=== PATIENT | male | born 1945 | race Caucasian/White ===

== ENCOUNTER 2017-06-21 08:53 | Day surgery (SDC) | payer MEDICARE, OTHER ==
[~2017-06-21] VITALS: Ht 172.7 cm; Wt 149.7 kg
[~2017-06-21 08:53] MED LIST: ALEVE220 MG PO; AMOXICILLIN500 MG PO; FISH OIL500 MG PO; HYDROCHLOROTHIA25 MG PO
[2017-06-21] MEDS ORDERED: VITAMIN D400 UNIT PO (09:21)
--- NOTE | 2017-06-21 11:52 | NUR ---
06/21/17 1152 Keerthi Tabor 1142 PT ARRIVED IN PACU SLEEPY WITH NO C/O'S.
--- NOTE | 2017-06-21 12:32 | NUR ---
PT IS BACK TO DS FROM PACU. WATER IS ON THE BEDSIDE TABLE. AT THE BEDSIDE. DC CRITERIA IS DISCUSSED WITH PT AND , BOTH VERBALIZE UNDERSTANDING. PT REPORTS NOT BEING HUNGRY AT THIS TIME. WILL REASSESS WITHIN THE HOUR.
--- NOTE | 2017-06-21 13:20 | NUR ---
PT WAS ABLE TO EAT LUNCH WITHOUT ISSUE. NO PAIN. STILL AT BEDSIDE. PT REQUESTING TO GO HOME.
--- NOTE | 2017-06-21 13:32 | NUR ---
DC INSTRUCTIONS GIVEN TO PATIENT IN THE PRESENCE OF HIS VERBALLY. THE OPPORTUNITY FOR QUESTIONS IS GIVEN. THE PT IS ALLOWED TO GET DRESSED AND HIS GOES OUT TO GET THE CAR.
--- NOTE | 2017-06-21 19:56 | EKG ---
[facility] [address] [facility] [place] [address] Signed Normal sinus rhythm with sinus arrhythmia Normal ECG No previous ECGs available Confirmed by SUSY MIMS MD ([id number]) on 06/21/2017 7:56:42 PM Electronically Signed By: SUSY MIMS MD 06/21/171955 PATIENT NAME: BENNETT SALAMANCA Electrocardiogram DATE OF : 47 PHYSICIAN: SUSY MIMS MD REPORT #: [id number] REPORT IS CONFIDENTIAL AND NOT TO BE RELEASED WITHOUT AUTHORIZATION
--- NOTE | 2017-07-05 13:32 | PREHP ---
[facility] [address] [place], [place] [address] Signed ADMISSION DATE: 06/21/2017 CHIEF COMPLAINT: Left ear canal osteoma. HISTORY: Mr. Clement is a 72-year-old man, who has had blockage of his left ear for several years. He was told to have this evaluated by Fartun Aguila, staff radiographer in [place] several years ago, but declined. Since then, the ear canal has been obstructed. He has hearing loss, intermittent blockage. He cannot really hear well when he is lying on his right ear in bed. No pain. No drainage. No other history of ear problems other than chronic hearing loss requiring hearing aids. PAST HISTORY/REVIEW OF SYSTEMS: Generally healthy. He does have a hearing loss, but otherwise no chronic medical problems. ALLERGIES: No allergies to medications. CURRENT MEDICATIONS: 1. Hydrochlorothiazide. 2. Meloxicam. PAST SURGICAL HISTORY: 1. Shoulder surgery. 2. Glaucoma surgery. SOCIAL HISTORY: He is . Lives in [place]. 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 No alcohol or tobacco. FAMILY HISTORY: Unremarkable. PHYSICAL EXAMINATION: VITAL SIGNS: Stable. Afebrile. GENERAL: Well-developed, well-nourished, moderately obese male, in no distress. HEAD AND NECK: Shows no pathology. Left ear, see below. Right ear is clear. Neck, no masses. CHEST: Clear. HEART: Regular rate and rhythm. ABDOMEN: Benign. EXTREMITIES: Benign. Electronically Signed By: FAUSTO BARKER MD 07/05/17 1332 PATIENT NAME: RIGOBERTO CLEMENT PREOPERATIVE H&P DATE OF : 47 REPORT #: [id number] PHYSICIAN: FAUSTO BARKER MD PCP: RK SIMENTAL MD REPORT IS CONFIDENTIAL AND NOT TO BE RELEASED WITHOUT AUTHORIZATION [facility] [address] [place], [place] [address] Signed NEUROLOGIC: Grossly intact. PROCEDURE: The left ear was examined with the operating microscope. There was a very large round osteoma posteriorly based in the medial ear canal with lots of cerumen obstructing medially. I am able to remove part of the cerumen, but cannot get around the osteoma to remove it all, just 90+ percent blocking the ear canal. The patient tolerated the procedure well. 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 RECOMMENDATION: Excision, general anesthetic outpatient. Rigoberto is agreeable. We will schedule this at [facility] in the near future. The risks of surgery including bleeding, infection, injury to the ear canal and eardrum causing hearing loss have all been explained and accepted by Mr. Clement. He understands and desires to proceed. Fausto Barker MD GC/MODL /[id number] cc: Rk Simental MD Copies: RK SIMENTAL MD ~ Electronically Signed By: FAUSTO BARKER MD 07/05/17 1332 PATIENT NAME: RIGOBERTO CLEMENT PREOPERATIVE H&P DATE OF : 47 REPORT #: [id number] PHYSICIAN: FAUSTO BARKER MD PCP: RK SIMENTAL MD REPORT IS CONFIDENTIAL AND NOT TO BE RELEASED WITHOUT AUTHORIZATION
--- NOTE | 2017-07-05 13:32 | OR ---
[facility] [address] [place], [place] [address] Signed DATE OF OPERATION: 06/21/2017 SURGEON: Fausto Barker MD PREOPERATIVE DIAGNOSIS: Left ear canal osteoma. POSTOPERATIVE DIAGNOSIS: Left ear canal osteoma. PROCEDURE: Excision of left ear canal osteoma. ANESTHESIA: General orotracheal; FREEZING ROOM WORKER, Amairani Goldsmith. HISTORY: Mr. Clement is a 72-year-old man with an osteoma of the left ear canal. This is nearly completely obstructive. Unable to hear out of that ear due to debris trapped medial to the osteoma. He was taken to the operating room for the above-mentioned procedure. OPERATIVE PROCEDURE AND FINDINGS: After informed consent, the patient was taken to the operating room and placed in the supine position where general orotracheal anesthesia was induced. The patient and procedure were verified. The left ear was examined with the operating microscope. Betadine prep was performed. The ear canal had a complete obstruction with a bony osteoma. Posteriorly based 1% lidocaine with epinephrine was injected. The osteoma was then excised with a chisel completely removed, measured about 1 cm in height and about 3 cm in length. The squamous debris and cerumen medial were suctioned. The eardrum was intact. The point of attachment was in the posteroinferior bony ear canal. This was curetted and smoothed. Completely patent ear canal was obtained in this manner. Minimal bleeding. Cipro drops applied to the ear canal and cotton ball to the meatus. The patient was then awakened, extubated, and transported to the recovery room in good condition. No complications. BLOOD LOSS: Minimal. SPECIMEN: To pathology. Electronically Signed By: FAUSTO BARKER MD 07/05/17 1332 PATIENT NAME: BENNETT CLEMENT OPERATIVE REPORT DATE OF : 47 REPORT #: [id number] PHYSICIAN: FAUSTO BARKER MD PCP: RK MONSON MD REPORT IS CONFIDENTIAL AND NOT TO BE RELEASED WITHOUT AUTHORIZATION [address] [place], [place] [address] Signed DRAINS: None. Fausto Barker MD GC/HECTORL /[id number] Copies: ~ Electronically Signed By: FAUSTO BARKER MD 07/05/17 1332 PATIENT NAME: BENNETT CLEMENT OPERATIVE REPORT DATE OF : 47 REPORT #: [id number] PHYSICIAN: FAUSTO BARKER MD PCP: RK MONSON MD REPORT IS CONFIDENTIAL AND NOT TO BE RELEASED WITHOUT AUTHORIZATION
== END 2017-06-21 13:40 | disposition home or self-care (01) ==
LOC: DS 08:53 → OPS 08:53 → DS 10:15 → OPS 10:15
PROVIDERS: Otolaryngology
PROC: 09T Ear, Nose, Sinus, Resection (ICD-10-PCS; principal; 2017-06-21 10:15)
DX: D21.0 Benign neoplasm of connective and other soft tissue of head, face and neck (principal); G47.30 Sleep apnea, unspecified; I10 Essential (primary) hypertension; E66.01 Morbid (severe) obesity due to excess calories; Z68.43 Body mass index [BMI] 50.0-59.9, adult; Z79.899 Other long term (current) drug therapy; Z99.89 Dependence on other enabling machines and devices
CPT/HCPCS: 00120; 36415; 80048; 88305; 93005; 93010; J2250; J2405; J3010; J7040; J7120

== ENCOUNTER 2019-12-01 15:15 | Emergency (ER) | payer MEDICARE, OTHER ==
[~2019-12-01] VITALS: Ht 172.7 cm; Wt 147.4 kg
[~2019-12-01 15:15] MED LIST changes: +VITAMIN D400 UNIT PO
[2019-12-01] MEDS ORDERED: MELOXICAM15 MG PO (15:37)
[2019-12-01] MEDS ORDERED: LISINOPRIL-HCT1 EACH PO (15:38)
== END 2019-12-01 17:15 | disposition home or self-care (01) ==
LOC: ED 15:15
DX: S20.212A Contusion of left front wall of thorax, initial encounter (principal); I10 Essential (primary) hypertension; Z79.899 Other long term (current) drug therapy; W18.30XA Fall on same level, unspecified, initial encounter
CPT/HCPCS: 99284

== ENCOUNTER 2021-12-31 08:40 | Day surgery (SDC) | payer MEDICARE, OTHER ==
[~2021-12-31] VITALS: Ht 172.7 cm; Wt 150.0 kg
[~2021-12-31 08:40] MED LIST changes: +FISH OIL 1,0001 EAC8 PO; +LISINOPRIL-HCT1 EACH PO; +MELOXICAM15 MG PO
--- NOTE | 2021-12-31 11:36 | NUR ---
has been waiting patiently. or case ahead went longer than usual. pt kept updated has been up to br.
--- NOTE | 2021-12-31 12:41 | NUR ---
12/31/21 1241 Cecily Palomo3- PT ARRIVES TO PACU AWAKE. PT ABLE TO ROLL HIMSELF TO HIS BACK AND IS SAT UP SLIGHTLY IN BED. RESP EVEN AND UNLABORED. OXYGEN SAT HIGH 90'S TO 100% ON 8L VIA MASK.
--- NOTE | 2022-01-01 14:08 | OR ---
[facility] [place] [facility] [address] [place], [place] [address] Signed DATE OF OPERATION: 12/31/2021 SURGEON: Bobbi Winkler MD PREOPERATIVE DIAGNOSIS: Episodic diarrhea. POSTOPERATIVE DIAGNOSES: 1. Sigmoid diverticulosis. 2. Mild cecitis and proctitis. PROCEDURE: Total colonoscopy to cecum with biopsy of cecum and rectum. ANESTHESIA: Intravenous sedation, propofol infusion, Angella Silva CRNA. INDICATION: This 76-year-old white man is a patient of [facility], and is well-known to me from the past having undergone colonoscopy a number of years ago. He is here for colonoscopy on the basis of episodic and persistent diarrhea. Previous colonoscopy showed inflammation of the cecum on biopsy. He has no blood per rectum and no family history of colon cancer or inflammatory bowel disease. He understands risk of bleeding, infection, and perforation related to colonoscopy and wished to proceed. FINDINGS: The prep was adequate. Complete colonoscopy was undertaken of the cecum without question. He did have some inflammation of the cecum, but no evidence of cancer or polyps. Diverticula of the sigmoid and left colon were uninflamed and the rectum had mild proctitis. PROCEDURE IN DETAIL: The patient was brought to the surgical endoscopy suite and placed in lateral decubitus position, given intravenous sedation with propofol infusional technique with full cardiopulmonary monitoring. Digital rectal examination was normal. An Olympus video colonoscope was passed in the rectum and manipulated throughout the colon. Numerous diverticula were seen in the sigmoid and left colon. The scope was ultimately advanced to the cecum. Irrigation was undertaken as needed. There appeared to be mild inflammatory change of the cecal mucosa. Biopsies were obtained. The scope Electronically Signed By: BOBBI WINKLER MD 01/01/22 1408 PATIENT NAME: BENNETT SALAMANCA OPERATIVE REPORT DATE OF : 47 REPORT #: [id number] PHYSICIAN: BOBBI WINKLER MD PCP: FANI HERNANDEZ PA-C REPORT IS CONFIDENTIAL AND NOT TO BE RELEASED WITHOUT AUTHORIZATION [facility] [place] [facility] [address] [place] [id number] Signed was then withdrawn and examination throughout showed only diverticulosis until the rectum where there was again mild proctitis. Biopsies were obtained there as well. Retroflexed view was normal. The scope was removed and the patient was taken to the recovery room in good condition. CONCLUDING DIAGNOSES: 1. Mild cecitis and proctitis. 2. Diverticulosis. PLAN: Recommend high-fiber diet. We will check pathology report. If warranted, initiate treatment as appropriate. He will return to the ongoing care of PA. Ryan MD ROCÍO Alvarado/PALOMA /[id number] cc: Fani Hernandez PA-C Copies: FANI HERNANDEZ PA-C ~ Electronically Signed By: BOBBI WINKLER MD 01/01/22 1408 PATIENT NAME: BENNETT SALAMANCA OPERATIVE REPORT DATE OF : 47 REPORT #: [id number] PHYSICIAN: BOBBI WINKLER MD PCP: FANI HERNANDEZ PA-C REPORT IS CONFIDENTIAL AND NOT TO BE RELEASED WITHOUT AUTHORIZATION
--- NOTE | 2022-01-04 15:07 | PATH ---
[facility] [address] [place], [place] [address] Signed SPECIMEN(S): A CECUM COLON BIOPSY SPECIMEN(S): B RECTUM SPECIMEN SOURCE: A. CECUM COLON BIOPSY B. RECTUM CLINICAL HISTORY: Hx colitis, rectal bleeding. Post op: Diverticulosis, mid proctitis. FINAL PATHOLOGIC DIAGNOSIS: A. Cecum colon biopsy: - Benign colonic mucosa, negative for specific diagnostic abnormality. B. Rectum, biopsy: - Benign colonic mucosa, negative for specific diagnostic abnormality. JVR:[facility]:C2NR MICROSCOPIC EXAMINATION: Histologic sections of all submitted blocks are examined by light microscopy. These findings, together with the gross examination, support the pathologic diagnosis. GROSS DESCRIPTION: Two specimens are received in two containers, labeled "Rigoberto Clement." A. The specimen, labeled " Rigoberto Clement, #1," and designated on the requisition "cecum biopsy," is received in formalin and consists of three de santiago soft tissue fragment(s) that measure 0.3-0.4 cm in greatest dimension. The specimen is entirely submitted in cassette (A1). B. The specimen, labeled " Rigoberto Clement, #2," and designated on the requisition "rectum biopsy," is received in formalin and consists of two de santiago soft tissue fragment(s) that measure 0.3-0.4 cm in greatest dimension. The specimen is entirely submitted in cassette (B1). FB (under the direct supervision of a pathologist) The Gross Description was prepared using a voice recognition system. The report was reviewed for accuracy; however, sound-alike word errors, addition and/or deletions may occur. If there is any question about this report, please contact Client Services. PERFORMING LABORATORY: The technical component was performed by [facility], [address] [place] [id number] (CLIA# [id number]). Professional interpretation was PATIENT NAME: RIGOBERTO CLEMENT PATHOLOGY DATE OF : 47 REPORT #: [id number] PHYSICIAN: [facility] PCP: EFREN CUI PA-C REPORT IS CONFIDENTIAL AND NOT TO BE RELEASED WITHOUT AUTHORIZATION [address] [address] Signed performed by [facility], [address] [place] [address], [place] [address] (CLIA#: [id number]). Diagnostician: Patel Holloway MD Pathologist Electronically Signed 01/04/2022 Copies: ~ PATIENT NAME: RIGOBERTO CLEMENT PATHOLOGY DATE OF : 47 REPORT #: [id number] PHYSICIAN: [facility] PCP: EFREN CUI PA-C REPORT IS CONFIDENTIAL AND NOT TO BE RELEASED WITHOUT AUTHORIZATION
== END 2021-12-31 13:16 | disposition home or self-care (01) ==
LOC: DS 08:40
PROVIDERS: ATTEND Surgery
PROC: 0DBP8ZX Excision of Rectum, Via Natural or Artificial Opening Endoscopic, Diagnostic (ICD-10-PCS; 2021-12-31)
PROC: 0DBH8ZX Excision of Cecum, Via Natural or Artificial Opening Endoscopic, Diagnostic (ICD-10-PCS; principal; 2021-12-31 12:00)
DX: K52.9 Noninfective gastroenteritis and colitis, unspecified (principal); K62.89 Other specified diseases of anus and rectum; K57.30 Diverticulosis of large intestine without perforation or abscess without bleeding; K62.5 Hemorrhage of anus and rectum; I10 Essential (primary) hypertension; E66.01 Morbid (severe) obesity due to excess calories; D23.60 Other benign neoplasm of skin of unspecified upper limb, including shoulder; Z96.619 Presence of unspecified artificial shoulder joint; Z68.42 Body mass index [BMI] 45.0-49.9, adult
CPT/HCPCS: 88305; J0690; J2001; J2704; J7121